=== PATIENT | male | born 1980 | race African-American/Black ===

== ENCOUNTER 2016-10-27 23:00 | Emergency (ER) | payer OTHER ==
[~2016-10-27] VITALS: Ht 180.3 cm; Wt 70.3 kg
[2016-10-27] MEDS ORDERED: BUPROPION XL300 MG ORAL (23:18)
[2016-10-27] MEDS ORDERED: ZYPREXA10 MG ORAL (23:18)
[2016-10-27 23:20] VITALS: BP 163/92
[2016-10-27] MEDS ORDERED: IBUPROFEN600 MG ORAL (23:39)
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
[2016-10-27 23:54] VITALS: BP 163/92
--- NOTE | 2016-10-28 10:06 | Diagnostic Imaging Report ---
Indications: TRAUMA Technique: Three views of the right knee Comparison: None Findings: No acute fractures. No dislocations. Joint spaces are preserved. No radiopaque foreign body. Normal mineralization. Impression: No acute process
--- NOTE | 2016-10-28 10:29 | Diagnostic Imaging Report ---
Clinical Indication:TRAUMA, pain Technique: 3 views of the left wrist Comparison: None Findings: Bony alignment is normal. No acute fractures. No dislocations. The joint spaces are preserved Impression: Negative
== END 2016-10-27 23:55 | disposition home or self-care (01) ==
LOC: EMR 23:25
DX: S63.502A Unspecified sprain of left wrist, initial encounter (principal); S83.91XA Sprain of unspecified site of right knee, initial encounter; V18.0XXA Pedal cycle driver injured in noncollision transport accident in nontraffic accident, initial encounter; Y93.55 Activity, bike riding; I10 Essential (primary) hypertension
CPT/HCPCS: 99283